=== PATIENT | male | born 1990 | race Caucasian/White ===

== ENCOUNTER 2024-08-20 10:47 | Emergency (ER) | payer OTHER, SELFPAY ==
[2024-08-20 10:49] VITALS: BP 130/80; PULSE 69; O2SAT 96; BMI 23.1
[2024-08-20 10:54] VITALS: TEMP 36.8
--- NOTE | 2024-08-20 10:57 | ED_ITS ---
HPI - Eye Problem General Chief complaint: Eye Problems Stated complaint: FOREIGN BODY - EYE Time Seen by Provider: 08/20/24 10:52 Source: patient Mode of arrival: walk-in History of Present Illness HPI Narrative: This patient is here complaining of possible foreign body in his right eye. He was wearing protective eyewear at home while doing so ending on a chunk of metal but felt a piece of material again in his eye yesterday. That was about 12 hours ago. He has no other complaints. The eye started to get erythematous and tearing and light sensitive. He has no allergies to medication. He has no symptoms in his left eye. Related Data Allergies Allergy/AdvReac Type Severity Reaction Status Date / Time No Known Drug Allergies Allergy Verified 08/20/24 10:53 PFSH PFSH Social History Little interest or pleasure in doing things: not at all Feeling down, depressed, or hopeless: not at all Exam Narrative Exam Narrative: Physical examination shows this to be a well-hydrated well-nourished very pleasant young man here with a female snout puller. His vital signs are noted. Examining his left eye appears completely normal with no abnormal findings noted. His right eye does have some mild injection of his conjunctiva. The lids and lashes are normal. Extraocular muscles are normal the anterior chamber is deep. There is no hyphema or hypopyon. With slit-lamp examination we can identify the what appears to be metallic foreign body at the limbus at approximately the 3 o'clock position nasally. No other abnormalities were noted. Constitutional Vital Signs, click to edit/add: Last Vital Signs Temp 98.3 F 08/20/24 10:54 Pulse 69 08/20/24 10:49 Resp 16 08/20/24 10:49 BP 130/80 08/20/24 10:49 Pulse Ox 96 08/20/24 10:49 O2 Del Method Room Air 08/20/24 10:49 Course Vital Signs Vital signs: Vital Signs Pulse Rate 69 08/20/24 10:49 Respiratory Rate 16 08/20/24 10:49 Blood Pressure 130/80 08/20/24 10:49 Pulse Oximetry 96 08/20/24 10:49 Oxygen Delivery Method Room Air 08/20/24 10:49 Temperature 98.3 F 08/20/24 10:54 Pulse Rate 69 12/29/24 10:49 Respiratory Rate 16 08/20/24 10:49 Blood Pressure 130/80 08/20/24 10:49 Pulse Oximetry 96 08/20/24 10:49 Oxygen Delivery Method Room Air 08/20/24 10:49 MDM - Eye Problem MDM Narrative Medical decision making narrative: After instillation of tetracaine drops and good local anesthesia under slit-lamp guidance, I was able to remove the foreign body with a moistened Q-tip. There is a very tiny residual what appears to be rust ring. We will recommend follow- up with waste reclaimer tomorrow. He is avoid sunlight. He is apply cold compresses to the eye. We will place him mydriatic eyedrops. Discharge Plan Discharge Chief Complaint: Eye Problems Clinical Impression: Foreign body in cornea, right eye, initial encounter Patient Disposition: Home, Self-Care Time of Disposition Decision: 11:37 Print Language: [place] Citizen Additional Instructions: Cold compresses to the eye. Follow-up with your eye doctor tomorrow to further evaluate the residual rust ring. Referrals: Physician,Non-Staff, MD [Primary Care Provider] - 1 week
[2024-08-20] MEDS: TETRACAINE HCL 0.5% OP SOL 80 DROP/4 ML BOTTLE OP (11:05)
[2024-08-20] MEDS: TROPICAMIDE 1% OP SOL 300 DROP/15 ML BOTTLE OP (11:56)
== END 2024-08-20 11:58 | disposition home or self-care (01) ==
PROVIDERS: Emergency Provider Emergency Medicine Emergency Medical Services
DX: T15.01XA Foreign body in cornea, right eye, initial encounter (principal); X58.XXXA Exposure to other specified factors, initial encounter
CPT/HCPCS: 65220; 99284

== ENCOUNTER 2024-11-12 21:06 | Emergency (ER) | payer OTHER, SELFPAY ==
[2024-11-12 21:10] VITALS: BP 122/71; PULSE 70; TEMP 36.9; O2SAT 98; BMI 21.7
--- OUTSIDE RECORDS SUMMARY | 2024-11-12 21:11 | XMS_ITS | CCD ---
Author Organization [facility] Care Team Providers Care Lightning Protection Installer Name Role Phone DR RAY KC Consulting Unavailable REQUEST, DR CALERO LISTED Primary Care Unavailalexandria CASTRO, DR JACQUELIN Barriga Admitting Unavailarleth CASTRO, DR JACQUELIN Barriga Attending Unavailarleth CASTRO, DR JACQUELIN Barriga Consulting UnavailANA CRISTINA Moncada Consulting Unavailable Alfonso Gutierrez Consulting Unavailable DO Ivan Gamlbe Primary Care Provider [phone] MD Tammy Walker Attending Provider Arcadio Augustine Unavailable Ivan Gamble Unavailable Filipe Ríos Unavailable DO Quintin Redd Attending Provider MD Alhaji Velasquez Other Provider DO Cira Concepcion Primary Care Provider DO Cira Concepcion Attending Provider [phone] Cira Concepcion Unavailable MD Cosme Alan Attending Provider [phone] Cosme Alan Unavailable JOSE JHA Attending Unavailable JOSE JHA Attending Unavailable Cosme Alan Admitting Unavailable Cosme Alan Attending Unavailable Cira Concepcion Primary Care Unavailable Jose Jha Attending Unavailable NO FAMILY, PHYSICIAN Primary Care Unavailable Jose Jha Admitting Unavailable Medications Current Medications Medication Drug Class(es) Dates Sig (Normalized) Sig (Original) ibuprofen 800 mg oral tablet (15 sources) Nonsteroidal Anti-inflammatory Drug Start: 07-11-2021 take 800 mg by mouth three times daily Ibuprofen Active 800 MG PO Three times daily July 11, 2021 1:00am Start: 04-06-2020 End: 05-08-2020 take 800 mg by mouth three times daily Ibuprofen Discontinued 800 MG PO Three times daily April 06, 2020 12:00am May 08, 2020 2:53pm Start: 06-14-2018 End: 06-30-2018 take 800 mg by mouth three times daily Ibuprofen Discontinued 800 MG PO Three times daily June 14, 2018 12:00am June 30, 2018 11:35pm lidocaine 0.05 mg/mg medicated patch (12 sources) Antiarrhythmic, Amide Local Anesthetic Start: 08-05-2021 apply 1 dose topically once daily Lidocaine (Lidoderm) 5 % adhesive patch,medicated Active 1 PATCH TOPICAL Daily August 05, 2021 1:00am leave on most painful area for up to 12 hrs Start: 06-24-2021 End: 08-05-2021 apply 1 dose topically every twenty-four hours Lidocaine Discontinued 1 PATCH TOPICAL Q24H June 24, 2021 12:00am August 05, 2021 9:15am leave on most painful area for up to 12 hrs Lidocaine 4 % as directed Externally given at ER Active Methadone (5 sources) Opioid Agonist Methadone HCl 14 5 mg daily Active Methadone HCl 14 0 mg daily Active methylPREDNISolone 4 mg oral tablet (7 sources) Corticosteroid Start: 08-05-2021 take 1 tablet by mouth once Methylprednisolone (Medrol (Abhinav)) 4 mg tablets,dose pack Active 4 MG PO Once August 05, 2021 1:00am methylPREDNISolo ne 4 MG use as directed FOLLOW DIRECTIONS ON BACK OF FOIL PACK Oral for 6 Active triamcinolone acetonide 1 mg/ml topical cream (11 sources) Corticosteroid Start: 04-30-2023 Triamcinolone Acetonide 0.1 % 1 application Externally Twice a day for 7 days Apr, Active Start: 04-30-2023 Triamcinolone Acetonide 0.1 % 1 application Externally Twice a day for 7 days Apr, Active Start: 02-18-2016 DREA barriga Jan, 40 mg Completed/Discontinued Medications Medication Drug Class(es) Dates Sig (Normalized) Sig (Original) acetaminophen 500 mg oral tablet (3 sources) Start: 07-08-2021 End: 08-05-2021 take 2 tablets by mouth four times daily Acetaminophen (Tylenol Extra Strength) 500 mg tablet Discontinued 1000 MG PO Four times daily 60 July 08, 2021 1:00am August 05, 2021 9:15am acetaminophen 325 mg / oxyCODONE hydrochloride 5 mg oral tablet (3 sources) Opioid Agonist Start: 07-24-2021 End: 08-05-2021 take 1 tablet by mouth every six hours Oxycodone-Acetaminop hen (Percocet) 5-325 mg tablet Discontinued 1 TAB PO Q6H 8 2 July 24, 2021 August 05, 2021 9:15am [id number] actuat albuterol 0.09 mg/actuat metered dose inhaler (3 sources) beta2-Adrenergic Agonist Start: 07-11-2017 End: 06-14-2018 take 1 puff(s) by inhalation every four to six hours Albuterol Sulfate (Proventil Hfa) 90 mcg/actuation Hfa Aerosol Inhaler Discontinued 2 PUFF INHALATION EVERY 4-6 HOURS July 11, 2017 1:00am June 14, 2018 2:49am with spacer amoxicillin 875 mg / clavulanate 125 mg oral tablet (3 sources) Penicillin-class Antibacterial Start: 10-06-2020 End: 12-23-2020 take 1 tablet by mouth twice daily Amoxicillin-Pot Clavulanate (Augmentin) 875-125 mg tablet Discontinued 1 TAB PO Twice daily 14 October 06, 2020 1:00am December 23, 2020 7:53am brexpiprazole 0.5 mg oral tablet (3 sources) Atypical Antipsychotic Start: 05-08-2020 End: 10-06-2020 Brexpiprazole (Rexulti) 0.5 mg tablet Discontinued MG TABLET May 08, 2020 12:00am October 06, 2020 4:01am cyclobenzaprine hydrochloride 10 mg oral tablet (12 sources) Muscle Relaxant Start: 07-08-2021 End: 08-05-2021 take 10 mg by mouth three times daily Cyclobenzaprine Discontinued 10 MG PO Three times daily July 11, 2021 1:00am August 05, 2021 9:15am Cyclobenzaprine HCl given at ER Active fluticasone propionate 0.05 mg/actuat metered dose nasal spray (3 sources) Corticosteroid Start: 10-06-2020 End: 12-23-2020 take 1 spray(s) nasal route every twelve hours Fluticasone Propionate Discontinued 1 SPRAY INTRANASAL Q12H October 06, 2020 1:00am December 23, 2020 7:53am administer into each nostril methocarbamol 750 mg oral tablet (3 sources) Muscle Relaxant Start: 06-24-2021 End: 07-08-2021 take 750 mg by mouth three times daily Methocarbamol Discontinued 750 MG PO Three times daily June 24, 2021 12:00am July 08, 2021 2:44pm naproxen 500 mg oral tablet (3 sources) Nonsteroidal Anti-inflammatory Drug Start: 06-24-2021 End: 08-05-2021 take 1 tablet by mouth twice daily Naproxen (Naprosyn) 500 mg tablet Discontinued 500 MG PO Twice daily June 24, 2021 12:00am August 05, 2021 9:15am 24 hr nicotine 0.875 mg/hr transdermal system (3 sources) Cholinergic Nicotinic Agonist Start: 07-08-2021 End: 08-05-2021 Nicotine Discontinued 1 EACH TRANSDERML Daily 0 July 08, 2021 1:00am August 05, 2021 9:15am penicillin v potassium 500 mg oral tablet (3 sources) Start: 06-14-2018 End: 09-01-2018 take 500 mg by mouth four times daily Penicillin V Potassium Discontinued 500 MG PO Four times daily 40 June 14, 2018 12:00am September 01, 2018 10:20pm predniSONE 10 mg oral tablet (3 sources) Start: 07-24-2021 End: 08-05-2021 take 60 mg by mouth once daily, then take 40 mg by mouth once daily, then take 20 mg by mouth once daily, then take 10 mg by mouth once daily Prednisone Discontinued 10 MG PO Daily 39 July 24, 2021 1:00am August 05, 2021 9:15am 60mg daily for three days, 40mg daily for three days, 20mg daily for three days, 10mg daily for three days. 24 hr venlafaxine 75 mg extended release oral capsule (3 sources) Serotonin and Norepinephrine Reuptake Inhibitor Start: 05-08-2020 End: 10-06-2020 Venlafaxine Discontinued MG PO May 08, 2020 12:00am October 06, 2020 4:01am Problems Active Problems Problem Classification Problem Date Documented Date Episodic/Chronic Administrative/social admission (3 sources) Patient encounter status; Translations: [Persons encountering health services in other specified circumstances] 05-08-2020 Episodic Anxiety disorders (12 sources) Mixed anxiety and depressive disorder; Translations: [Anxiety disorder, unspecified] Chronic Chronic obstructive pulmonary disease and bronchiectasis (3 sources) Bronchitis; Translations: [Bronchitis, not specified as acute or chronic] 07-11-2017 Episodic Essential hypertension (3 sources) Hypertensive disorder; Translations: [Essential (primary) hypertension] 09-03-2017 Chronic Inflammatory conditions of male genital organs (1 source) Orchitis; Translations: [ORCHITIS] Onset: 1 Episodic Mood disorders (20 sources) Depressive disorder; Translations: [Depression] 05-09-2020 Chronic Open wounds of extremities (1 source) Complete traumatic metacarpophalangeal amputation of unspecified finger, initial encounter Chronic Open wounds of head; neck; and trunk (3 sources) Facial laceration ; Translations: [Laceration without foreign body of other part of head, initial encounter] 04-06-2020 Episodic Other congenital anomalies (1 source) Preauricular cyst; 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 Other congenital anomalies (2 sources) Preauricular sinus and cyst; 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] Onset: 4 Chronic Other gastrointestinal disorders (12 sources) Constipation; Translations: [Constipation, unspecified] Episodic Other hematologic conditions (3 sources) ESR raised; Translations: [Elevated erythrocyte sedimentation rate] 07-02-2021 Episodic Other injuries and conditions due to external causes (3 sources) Minor head injury; Translations: [Unspecified injury of head, initial encounter] 04-06-2020 Episodic Other nervous system disorders (6 sources) Chronic pain; Translations: [Other chronic pain] Chronic Other nutritional; endocrine; and metabolic disorders (12 sources) Body mass index 25-29 - overweight; Translations: [Body mass index (BMI) 25.0-25.9, adult] Episodic Other screening for suspected conditions (not mental disorders or infectious disease) (3 sources) MRI scan abnormal; Translations: [Abnormal findings on diagnostic imaging of other specified body structures] 07-05-2021 Chronic Other upper respiratory infections (3 sources) Sinusitis; Translations: [Chronic sinusitis, unspecified] 10-06-2020 Chronic Poisoning by other medications and drugs (3 sources) Poisoning by unspecified drugs, medicaments and biological substances, accidental (unintentional), initial encounter; Translations: [Drug overdose] 06-12-2020 Episodic Spondylosis; intervertebral disc disorders; other back problems (20 sources) Sciatica; Translations: [Sciatica, unspecified side] Onset: 2 Resolved: 2 07-11-2021 Episodic Sprains and strains (3 sources) Low back strain; Translations: [Strain of muscle, fascia and tendon of lower back, initial encounter] 06-24-2021 Episodic Substance-related disorders (20 sources) Nicotine dependence, cigarettes, uncomplicated; Translations: [Opioid withdrawal] Onset: 1 Resolved: 2 12-23-2020 Chronic Substance-related disorders (11 sources) Opioid abuse; Translations: [Opioid use, unspecified, uncomplicated] 06-12-2020 Episodic Superficial injury; contusion (3 sources) Contusion of face; Translations: [Contusion of other part of head, initial encounter] 04-06-2020 Episodic Unclassified (2 sources) LOW BACK PAIN, UNSPECIFIED; Translations: [LOW BACK PAIN, UNSPECIFIED] Onset: 1 Viral infection (12 sources) Verruca plantaris; Translations: [Plantar wart] Episodic Past or Other Problems Problem Classification Problem Date Documented Da te Episodic/Chronic Hepatitis (17 sources) Viral hepatitis C; Translations: [Unspecified viral hepatitis C without hepatic coma] Onset: 05-27-2023 07-05-2021 Episodic Unclassified (1 source) LOW BACK PAIN, UNSPECIFIED; Translations: [LOW BACK PAIN, UNSPECIFIED] Onset: 06-30-2021 Unclassified (2 sources) Acute bilateral low back pain without sciatica M54.50 Onset: 07-28-2021 Resolved: 08-07-2021 Results Test Name Value Interpretation Reference Range Facility [facility] 02-15-2024 L Specimen: [id number] Received: 02/16/24 Status: RAKAN Montes Num: [id number] Spec Type: Surgical Subm Dr: Jose Jha,DO Tissues: A Soft Tissue/Surgical Margin-Other than Tumor,Mass,Lip or Yuni (LT PREAURICULA Procedures: HE, Gross/Micro L3 Age/ Patient Sex Location Account Attending Physician LeloSoila spencer 33/M ANDREINA [id number] Jose Jha DO SPEC NUM: [id number] RECD: 02/16/24 STATUS: RAKAN MONTES NUM: [id number] ROMINA: 02/15/24- SUBM DR: Jose Jha DO ENTERED: 02/16/[address] [facility] [address]: [facility] SPEC TYPE: Surgical DEPT: S ORDERED: HE, Gross/Micro L3 ORDERED: HE, Gross/Micro L3 Pathological Diagnosis Cyst, left preauricular, excision: Epidermal inclusion cyst. Clinical Information Preauricular cyst, left ear Gross Description Received in formalin labeled with the patient's name, date of and left preauricular cyst is an unoriented del angel elliptical excision of skin with underlying lobulated subcutaneous tissue altogether measuring 1.7 x 0.8 x 0.6 cm. The skin surface is unremarkable and contains no visible lesions. The specimen is inked green along its resection margin and serially sectioned to reveal a 0.3 x 0.1 cm intact cystic structure with a 0.1 cm in maximum thickness wall. Loan Operations Manager sections are submitted in A1. CPT Codes 49821 -------- -------- Specimen: [id number] Received: 02/16/24 Status: RAKAN Montes Num: [id number] Spec Type: Surgical Subm Dr: Jose Jha,DO Tissues: A Soft Tissue/Surgical Margin-Other than Tumor,Mass,Lip or Yuni (LT PREAURICULA Procedures: HE, Gross/Micro L3 -------- Patient: Soila Potts [id number] (Continued) -------- Signed (signature on file) Maribel Franco MD 02/17/24 1517 Normal [facility] Hep C RT-PCR, Qnt (Non-Graph )on 05-27-2023 Hepatitis C Quantitation Not detected Normal . [facility] Comment on above: Order Comment: Reaso n for Exam Hepatitis C Performed By: #### H CV RNAQNT #### [facility] , Test Information: Normal . [facility] Comment on above: Order Comment: Reaso n for Exam Hepatitis C Result Comment: The quantitative range of this assay is 15 IU/mL to 100 million IU/mL. Performed at: [facility] [address] [id number] Physiology Teacher: Leonor Chris MD, Phone: [phone] PERFORMED BY: [address] [place] [address] PATHOLOGIST OLIVE PACKER DERIAN SANCHEZ M.D. Performed By: #### H CV RNAQNT #### [facility] , Alanine aminotransferase [En zymatic activity/volume] in Serum or PlasmaOrdered By: Cira Concepcion on 04-30-2023 ALT [Catalytic activity/Vol] 15 U/L 7-52 [facility] Albumin [Mass/volume] in Ser um or Plasma by Bromocresol green (BCG) dye binding methoOrdered By: Cira Concepcion on 04-30-2023 Albumin BCG dye [Mass/Vol] 4.4 g/dL 3.5-5.7 [facility] Alkaline phosphatase [Enzyma tic activity/volume] in Serum or PlasmaOrdered By: Cira Concepcion on 04-30-2023 ALP [Catalytic activity/Vol] 62 U/L 34-104 [facility] Aspartate aminotransferase [ Enzymatic activity/volume] in Serum or PlasmaOrdered By: Cira Concepcion on 04-30-2023 AST [Catalytic activity/Vol] 15 U/L 13-39 [facility] Basophils Auto (Bld) [#/Vol] Ordered By: Cira Concepcion on 04-30-2023 Basophils (Bld) [#/Vol] 0.0 10*3/uL 0.0-0.2 [facility] Basophils/100 WBC Auto (Bld) Ordered By: Cira Concepcion on 04-30-2023 Basophils/100 WBC (Bld) 0.5 % . [facility] Bilirubin.total [Mass/volume ] in Serum or PlasmaOrdered By: Cira Concepcion on 04-30-2023 Bilirubin [Mass/Vol] 0.4 mg/dL 0.3-1.0 [facility] Calcium [Mass/volume] in Ser um or PlasmaOrdered By: Cira Concepcion on 04-30-2023 Calcium [Mass/Vol] 9.2 mg/dL 8.6-10.3 [facility] Carbon dioxide, total [Moles /volume] in Serum or PlasmaOrdered By: Cira Concepcion on 04-30-2023 CO2 [Moles/Vol] 29.0 mmol/L 21.0-31.0 [facility] Chloride [Moles/volume] in S olive or PlasmaOrdered By: Cira Concepcion on 04-30-2023 Chloride [Moles/Vol] 105 mmol/L 98-107 [facility] Creatinine [Mass/volume] in Serum or PlasmaOrdered By: Cira Concepcion on 04-30-2023 Creatinine [Mass/Vol] 0.84 mg/dL 0.70-1.30 [facility] Diagnostic impression [Inter pretation] in Specimen NarrativeOrdered By: Cira Concepcion on 04-30-2023 Diagnostic impression Molgen Ollie (Unsp spec) [Interp] See comment . [facility] Comment on above: Positive HCV antibod y screen without the presence of HCVRNA is consistent with a resolved past infection or a falsepositive HCV antibody. Consider repeat testing after onemonth.Performed at: [facility] [id number] Director: Zane Raines PhD, Phone: [phone] at: - [facility] [address] [id number] Director: Leonor Chris MD, Phone: [phone] Eosinophils Auto (Bld) [#/Vo l]Ordered By: Cira Concepcion on 04-30-2023 Eosinophils (Bld) [#/Vol] 0.2 10*3/uL 0.0-0.45 [facility] Eosinophils/100 WBC Auto (Bl d)Ordered By: Cira Concepcion on 04-30-2023 Eosinophils/100 WBC (Bld) 2.7 % . [facility] Erythrocyte distribution wid th Auto (RBC) [Ratio]Ordered By: Cira Concepcion on 04-30-2023 Erythrocyte distribution width (RBC) [Ratio] 13.8 % 12.0-14.8 [facility] Globulin Calc (S) [Mass/Vol] Ordered By: Cira Concepcion on 04-30-2023 Globulin (S) [Mass/Vol] 2.3 g/dL [facility] Glucose [Mass/volume] in Ser um or PlasmaOrdered By: Cira Concepcion on 04-30-2023 Glucose [Mass/Vol] 85 mg/dL 70-100 [facility] Comment on above: ADA recommended refe rence rangeRandom Glucose Reference Range is dependent on time and content of last meal. Glucose of more than 200 mg/dL in a nonstressed, ambulatory subject supports the diagnosis of Diabetes Mellitus. Hematocrit Auto (Bld) [Volum e fraction]Ordered By: Cira Concepcion on 04-30-2023 Hematocrit (Bld) [Volume fraction] 36.9 % 38.8-50.0 [facility] Hemoglobin [Mass/volume] in BloodOrdered By: Cira Concepcion on 04-30-2023 Hemoglobin (Bld) [Mass/Vol] 12.5 g/dL 13.0-17.0 [facility] Hepatitis C virus IgG Ab [Pr esence] in Serum or Plasma by ImmunoassayOrdered By: Cira Concepcion on 04-30-2023 HCV IgG IA Ql Reactive Non Reactive [facility] Leukocytes [#/volume] correc ivelisse for nucleated erythrocytes in Blood by Automated counOrdered By: Cira Concepcion on 04-30-2023 WBC corrected for nucl RBC Auto (Bld) [#/Vol] 5.9 10*3/uL 4.1-10.5 [facility] Lymphocytes Auto (Bld) [#/Vo l]Ordered By: Cira Concepcion on 04-30-2023 Lymphocytes (Bld) [#/Vol] 2.7 10*3/uL 1.00-4.8 [facility] Lymphocytes/100 WBC Auto (Bl d)Ordered By: Cira Concepcion on 04-30-2023 Lymphocytes/100 WBC (Bld) 45.3 % . [facility] MCH Auto (RBC) [Entitic mass ]Ordered By: Cira Concepcion on 04-30-2023 MCH (RBC) [Entitic mass] 28.0 pg 27.5-35.2 [facility] MCHC Auto (RBC) [Mass/Vol]Or dered By: Cira Concepcion on 04-30-2023 MCHC (RBC) [Mass/Vol] 33.8 g/dL 32.5-35.6 [facility] MCV Auto (RBC) [Entitic vol] Ordered By: Cira Concepcion on 04-30-2023 MCV (RBC) [Entitic vol] 82.8 fL 83.5-101 [facility] Monocytes Auto (Bld) [#/Vol] Ordered By: Cira Concepcion on 04-30-2023 Monocytes (Bld) [#/Vol] 0.4 10*3/uL 0.0-0.8 [facility] Monocytes/100 WBC Auto (Bld) Ordered By: Cira Concepcion on 04-30-2023 Monocytes/100 WBC (Bld) 7.6 % . [facility] Neutrophils Auto (Bld) [#/Vo l]Ordered By: Cira Concepcion on 04-30-2023 Neutrophils (Bld) [#/Vol] 2.6 10*3/uL 1.8-7.7 [facility] Neutrophils/100 WBC Auto (Bl d)Ordered By: Cira Concepcion on 04-30-2023 Neutrophils/100 WBC (Bld) 43.9 % . [facility] No Panel InformationOrdered By: Cira Concepcion on 04-30-2023 Estimated GFR (CKD-EPI) > 60.0 mL/Min [facility] Hepatitis C RNA Qnt (PCR) Test Info See comment . [facility] Comment on above: The quantitative ran ge of this assay is 15 IU/mL to 100million IU/mL. Hepatitis C RNA Quantitative See comment [facility] Comment on above: HCV Not Detected Pharmacy Creatinine Clearance (Chem N/A [facility] TB Test (T-Spot) See comment [facility] Comment on above: See report. Scanned copy available in EMR. Nucleated erythrocytes [Pres ence] in Blood by Automated countOrdered By: Cira Concepcion on 04-30-2023 Nucleated RBC Auto Ql (Bld) 0.1 /100{WBC} 0-0.5 [facility] Platelet mean volume Auto (B ld) [Entitic vol]Ordered By: Cira Concepcion on 04-30-2023 Platelet mean volume (Bld) [Entitic vol] 8.1 fL 6.6-10.1 [facility] Platelets Auto (Bld) [#/Vol] Ordered By: Cira Concepcion on 04-30-2023 Platelets (Bld) [#/Vol] 220 10*3/uL 150-450 [facility] Potassium [Moles/volume] in Serum or PlasmaOrdered By: Cira Concepcion on 04-30-2023 Potassium [Moles/Vol] 4.2 mmol/L 3.5-5.1 [facility] Protein [Mass/volume] in Ser um or PlasmaOrdered By: Cira Concepcion on 04-30-2023 Protein [Mass/Vol] 6.7 g/dL 6.4-8.9 [facility] RBC Auto (Bld) [#/Vol]Ordere d By: Cira Concepcion on 04-30-2023 RBC (Bld) [#/Vol] 4.45 10*6/uL 3.90-5.60 [facility] Serum or plasma albumin/glob ulin mass ratioOrdered By: Cira Concepcion on 04-30-2023 Albumin/Globulin [Mass ratio] 1.9 {ratio} [facility] Serum or plasma anion gap de terminationOrdered By: Cira Concepcion on 04-30-2023 Anion gap [Moles/Vol] 9.2 mmol/L 6.0-15.0 [facility] Sodium [Moles/volume] in Ser um or PlasmaOrdered By: Cira Concepcion on 04-30-2023 Sodium [Moles/Vol] 139 mmol/L 136-145 [facility] Urea nitrogen [Mass/volume] in Serum or PlasmaOrdered By: Cira Concepcion on 04-30-2023 Urea nitrogen [Mass/Vol] 15 mg/dL 7-25 [facility] WBC Auto (Bld) [#/Vol]Ordere d By: Cira Concepcion on 04-30-2023 WBC (Bld) [#/Vol] 5.9 10*3/uL 4.1-10.5 [facility] Outside Records Officeon Outside Records Office [id number]# 2.00CD:127 Normal [facility] Outside Records Office [id number]# 1.00CD:127 Normal [facility] Radiology Outside Office Electrical Continuity Inspector yon 08-13-2021 Radiology Outside Office Copy [id number]# 1.00CD:127 Normal [facility] Radiology Outside Office Copy [id number]# 1.00CD:127 Normal [facility] Radiology Outside Office Copy [id number]# 1.00CD:127 Normal [facility] Radiology Outside Office Copy [id number]# 1.00CD:127 Normal [facility] Radiology Outside Office Copy [id number]# 1.00CD:127 Normal [facility] Referrals Officeon Referrals Office [id number]# 1.00CD:127 Normal [facility] CBC AUTO DIFFon 06-30-2021 BASO # 0.0 103/ul Normal 0.0-0.1 [facility] Comment on above: Performed By: #### C BC #### [facility] [address] [place] [address] Dr. Lyn Delgado Basophils/100 WBC (Bld) 0.2 % Normal 0.2-2.0 [facility] Comment on above: Performed By: #### C BC #### [facility] [address] [place] [address] Dr. Lyn Delgado EO # 0.0 103/ul Normal 0.0-0.7 [facility] Comment on above: Performed By: #### C BC #### [facility] [address] [place] [address] Dr. Lyn Delgado Eosinophils/100 WBC (Bld) 0.3 % Critically low 0.9-7.0 [facility] Comment on above: Performed By: #### C BC #### [facility] [address] [place] [address] Dr. Lyn Delgaod Erythrocyte distribution width (RBC) [Ratio] 15.4 % Critically high 11.0-15.0 [facility] Comment on above: Performed By: #### C BC #### [facility] [address] [place] [address] Dr. Lyn Delgado Hematocrit (Bld) [Volume fraction] 35.2 % Critically low 42.0-54.0 [facility] Comment on above: Performed By: #### C BC #### [facility] [address] [place] [address] Dr. Lyn Delgado Hemoglobin (Bld) [Mass/Vol] 11.3 g/dL Critically low 14.0-18.0 [facility] Comment on above: Performed By: #### C BC #### [facility] [address] [place] [address] Dr. Lyn Delgado IG # 0.06 10e3/ul Critically high 0.00-0.03 [facility] Comment on above: Performed By: #### C BC #### [facility] [address] [place] [address] Dr. Lyn Delgado IG % 0.4 % Normal 0.0-0.5 [facility] Comment on above: Performed By: #### C BC #### [facility] [address] [place] [address] Dr. Lyn Delgado LYMPH # 2.9 103/ul Normal 1.2-3.8 [facility] Comment on above: Performed By: #### C BC #### [facility] [address] [place] [address] Dr. Lyn Delgado Lymphocytes/100 WBC (Bld) 20.5 % Normal 20.5-60.0 [facility] Comment on above: Performed By: #### C BC #### [facility] [address] [place] [address] Dr. Lyn Delgado MANUAL DIFF REQ NO Normal [facility] Comment on above: Performed By: #### C BC #### [facility] [address] [place] [address] Dr. Lyn Delgado MCH (RBC) [Entitic mass] 25.3 pg Critically low 25.9-34 .0 [facility] Comment on above: Performed By: #### C BC #### [facility] [address] [address] [address] Lyn Delgado MCHC (RBC) [Mass/Vol] 32.1 g/dL Normal 29.9-35.2 [facility] Comment on above: Performed By: #### C BC #### [facility] [address] [place] [address] Dr. Lyn Delgado MCV (RBC) [Entitic vol] 78.7 fL Critically low 80.0-94. 0 [facility] Comment on above: Performed By: #### C BC #### [facility] [address] [place] [address] Dr. Lyn Delgado MONO # 1.1 103/ul Critically high 0.3-0.8 [facility] Comment on above: Performed By: #### C BC #### [facility] [address] [place] [address] Dr. Lyn Delgado Monocytes/100 WBC (Bld) 8.0 % Normal 1.7-12.0 [facility] Comment on above: Performed By: #### C BC #### [facility] [address] [place] [address] Dr. Lyn Delgado NEUT # 10.0 103/ul Critically high 1.4-6.5 [facility] Comment on above: Performed By: #### C BC #### [facility] [address] [place] [address] Dr. Lyn Delgado Neutrophils/100 WBC (Bld) 70.6 % Normal 43.0-75.0 [facility] Comment on above: Performed By: #### C BC #### [facility] [address] [place] [address] Dr. Lyn Delgado Platelet mean volume (Bld) [Entitic vol] 9.6 fL Normal 9.5-13.5 [facility] Comment on above: Performed By: #### C BC #### [facility] [address] [place] [address] Dr. Lyn Delgado PLT 404 103/ul Normal 150-450 [facility] Comment on above: Performed By: #### C BC #### [facility] [address] [address] [address] Lyn Delgado RBC 4.47 106/ul Critically low 4.70-6.10 [facility] Comment on above: Performed By: #### C BC #### [facility] [id number] Lyn Delgado WBC 14.2 103/ul Critically high 4.0-11.0 [facility] Comment on above: Performed By: #### C BC #### [facility] [id number] Lyn Delgado CRPon 06-30-2021 CRP [Mass/Vol] mg/L Critically high <=1.0 [facility] Comment on above: Performed By: #### C RP #### [facility] [address] [address] [address] ABD/PELV W CONon 06-30-20 CT ABD/PELV W CON EXAM: CT ABD/PELV W CON REASON FOR EXAM: Male, 31 years, GENERALIZED ABDOMINAL PAIN. TECHNIQUE: Computed tomography of the abdomen and pelvis is performed in the axial projection from the lung bases to the pubic symphysis. Sagittal and coronal reconstructed images are performed. Dose reduction techniques were achieved by using automated exposure control and/or adjustment of mA and/or KVP according to patient size and/or use of iterative reconstruction technique. A total of 100 mL Omnipaque 300 IV contrast was given. Study was performed without oral contrast. Additional axial delayed images are performed as well. COMPARISON: None. FINDINGS: Lung bases: The lung bases are clear. There is no pleural effusion. The visualized portions of the heart are unremarkable. Liver: The liver is normal. Gallbladder: The gallbladder is normal. Spleen: There is mild splenomegaly. Pancreas: The pancreas is normal. Adrenal glands: The adrenal glands are normal bilaterally. Right kidney: The kidney is normal in size. There is no renal calculus or hydronephrosis. Left kidney: The kidney is normal in size. There is no renal calculus or hydronephrosis. Stomach: The stomach is normal. Small bowel: The small bowel is normal. Large bowel: There appears to be some colon wall thickening in the region of the hepatic flexure and proximal transverse colon. The transverse colon appears somewhat redundant. There is a moderate amount of stool in the left colon. Appendix: The appendix is visualized, and is normal. There is some high density material within the appendiceal lumen which could represent inspissated debris or prior contrast. Aorta: The aorta is normal IVC: The IVC is normal. Retroperitoneum: Normal retroperitoneum. Bladder: The bladder is nearly empty at the time of scanning. Pelvic organs: Normal prostate gland. Abdominal wall: Normal abdominal wall. Osseous structures: Degenerative changes are seen in the lower thoracic spine. A limbus vertebral body is noted at L4. IMPRESSION: There appears to be some wall thickening within the colon at the hepatic flexure and proximal transverse colon. This may represent colitis or underdistention. No bowel obstruction or acute renal pathology. Mild splenomegaly. Additional nonacute findings, as detailed above. Electronically authenticated by: ALFONSO GUTIERREZ Date: 2021-06-30 18:44 Normal [facility] ER URINE PROFILEon 1 Bilirubin Ql (U) Negative Normal NEGATIVE [facility] Comment on above: Performed By: #### E RUR #### [facility] [address] [place] [address] Dr. Lyn Delgado Clarity (U) SL CLOUDY Abnormal CLEAR [facility] Comment on above: Performed By: #### E RUR #### [facility] [address] [place] [address] Dr. Lyn Delgado Color (U) YELLOW Normal YELLOW [facility] Comment on above: Performed By: #### E RUR #### [facility] [address] [place] [address] Dr. Lyn Delgado ERUTONE A micrscopic examination will be performed if indicated. Normal [facility] Comment on above: Performed By: #### E RUR #### [facility] [address] [place] [address] Dr. Lyn Delagdo Glucose Ql (U) Negative Normal NEGATIVE [facility] Comment on above: Performed By: #### E RUR #### [facility] [address] [place] [address] Dr. Lyn Delgado Hemoglobin Ql (U) Negative Normal NEGATIVE [facility] Comment on above: Performed By: #### E RUR #### [facility] [address] [place] [address] Dr. Lyn Delgado Ketones Ql (U) Negative Normal NEGATIVE [facility] Comment on above: Performed By: #### E RUR #### [facility] [address] [place] [address] Dr. Lyn Delgado LEUKOCYTES Negative Normal NEGATIVE [facility] Comment on above: Performed By: #### E RUR #### [facility] [address] [place] [address] Dr. Lyn Delgado Nitrite Ql (U) Negative Normal NEGATIVE [facility] Comment on above: Performed By: #### E RUR #### [facility] [address] [place] [address] Dr. Lyn Delgado pH (U) 5.5 [pH] Normal 5-9 [facility] Comment on above: Performed By: #### E RUR #### [facility] [address] [place] [address] Dr. Lyn Delgado SPEC GRAVITY >=1.030 Abnormal 1.005-<=1.02 5 [facility] Comment on above: Performed By: #### E RUR #### [facility] [address] [place] [address] Dr. Lyn Delgado UA PROTEIN Negative Normal NEGATIVE/ TRACE [facility] Comment on above: Performed By: #### E RUR #### [facility] [address] [place] [address] Dr. Lyn Delgado UR MICRO IND NOT INDICATED Normal [facility] Comment on above: Performed By: #### E RUR #### [facility] [address] [place] [address] Dr. Lyn Delgado Urobilinogen Qn (U) 1.0 {Ele'U}/dL Normal 0.2 - 1. 0 [facility] Comment on above: Performed By: #### E RUR #### [facility] [address] [place] [address] Dr. Lyn Delgado PROF CHEM 8 (BAS METB)on Anion gap [Moles/Vol] 16.5 mmol/L Normal [facility] Comment on above: Performed By: #### B MP #### [facility] [address] [address] [address] Lyn Delgado Calcium [Mass/Vol] 9.1 mg/dL Normal 8.4-10.2 [facility] Comment on above: Performed By: #### B MP #### [facility] [address] [address] [address] Lyn Delgado Chloride [Moles/Vol] 99 mmol/L Normal 98-107 [facility] Comment on above: Performed By: #### B MP #### [facility] [address] [place] [address] Dr. Lyn Delgado CO2 [Moles/Vol] 23.6 mmol/L Normal 22.0-30.0 [facility] Comment on above: Performed By: #### B MP #### [facility] [address] [address] [address] Lyn Delgado Creatinine [Mass/Vol] 0.87 mg/dL Normal 0.66-1.25 [facility] Comment on above: Performed By: #### B MP #### [facility] [address] [place] [address] Dr. Lyn Delgado EGFR-AF SWISS >60 Normal >=60 [facility] Comment on above: Performed By: #### B MP #### [facility] [address] [address] [address] Lyn Delgado EGFR-NON AF SWISS >60 Normal >=60 [facility] Comment on above: Performed By: #### B MP #### [facility] [address] [address] [address] Lyn Delgado Glucose [Mass/Vol] 95 mg/dL Normal 74-106 [facility] Comment on above: Performed By: #### B MP #### [facility] [address] [address] [address] Lyn Delgado Potassium [Moles/Vol] 4.1 mmol/L Normal 3.4-5.0 [facility] Comment on above: Performed By: #### B MP #### [facility] [address] [address] [address] Lyn Delgado Sodium [Moles/Vol] 135 mmol/L Critically low 137-145 [facility] Comment on above: Performed By: #### B MP #### [facility] [address] [place] [address] Dr. Lyn Delgado Urea nitrogen [Mass/Vol] 21.0 mg/dL Critically high 9.0-20 .0 [facility] Comment on above: Performed By: #### B MP #### [facility] [address] [place] [address] Dr. Lyn Delgado Urea nitrogen/Creatinine [Mass ratio] 24.1 mg/mg Normal [facility] Comment on above: Performed By: #### B MP #### [facility] [address] [place] [address] Dr. Lyn Delgado [facility] SED [facility] >130 Critically high <=15 [facility] Comment on above: Performed By: #### S EDR #### [facility] [address] [place] [address] Dr. Lyn Delgado US SCROTUM W VASCULAR ORGANo n 06-30-2021 US SCROTUM W VASCULAR ORGAN EXAM: US SCROTUM W VASCULAR ORGAN CLINICAL INDICATION: Right groin/scrotal pain, radiating to lower back. COMPARISON: Same day CT abdomen pelvis. TECHNIQUE: Villatoro-scale and color Doppler images as well as spectral analysis of the bilateral testes were obtained in the axial and longitudinal planes using real time ultrasound. FINDINGS: RIGHT: The testicle is normal in size, shape, and echotexture. The right testicle measures 5.5 x 2.3 x 3.5 cm. Asymmetric increased vascularity of the right testicle compared to the left. No masses are identified. No hydrocele. No varicocele. Right epididymis is unremarkable. Normal Doppler flow of the right epididymis. LEFT: The testicle is normal in size, shape, and echotexture. The left testicle measures 5.2 x 1.9 x 3.2 cm. Normal doppler flow of the left testicle. No masses are identified. No hydrocele. No varicocele. Left epididymis is unremarkable. Normal doppler flow of the left epididymis. IMPRESSION: Asymmetric increased vascularity of the right testicle compared to the left. May represent orchitis. Right epididymis does not appear hypervascular however and isolated orchitis is uncommon. An alternative explanation would be the reperfusion phase of intermittent torsion. No evidence of torsion at this time. Consider urologic evaluation. Electronically authenticated by: ANA CRISTINA VELÁSQUEZ Date: 2021-06-30 20:49 Normal [facility] Provider Note - ED v2on 03-24 Provider Note - ED v2 Provider Note - ED v2: Chart Review: HISTORY OF PRESENTING ILLNESS SOILA is a 29 year old Male and was seen by me at 18-Apr-2019 21:18 for a chief complaint of dental pain/injury . The historian is the patient. Additional Details: Patient complains of pain to the left lower jaw for the past 2 hours after biting into a piece of beef jerky. Pain is sharp and severe and constant. He took Tylenol without relief. He denies fever. It does feel swollen to him. He denies drainage. He says he has had chronic problems with his teeth but hasn't seen a dentist. Triage Information: Most recent Vital Sign Value Date Temp (F): 97.5 04-18-2019 21:05 Temp (C): 36.4 04-18-2019 21:05 Heart Rate (beats/min): 78 04-18-2019 21:05 Respirations (breaths/min): 18 04-18-2019 21:05 SpO2 (%): 99 04-18-2019 21:05 BP Systolic (mm Hg): 155 04-18-2019 21:05 BP Diastolic (mm Hg): 99 04-18-2019 21:05 Associated Symptoms: feels swollen. Significant negatives: denies fever. Location: left lower jaw. Radiation: none. Quality is sharp. Context is (biting into beef jerky). Duration: 2 hour(s). Timing is sudden onset and constant. Modifying factors: Worse with eating. Pertinent history is none related to reason for visit. PAST MEDICAL HISTORY ATTESTATION: I have reviewed and confirmed nurse's/medic's notes for patient's medications, allergies, medical history, and surgical history ALLERGIES/INTOLERANCE S: No Known Allergies HEALTH HISTORY: No documented data. OUTPATIENT MEDICATIONS: Home Medications Review Status for Reconciliation: N/A Med Status: N/A No documented data. SIGNIFICANT EVENTS: Past Medical History Description:HEP C REVIEW OF SYSTEMS All other systems reviewed and are negative PHYSICAL EXAM CONSTITUTIONAL: Well-developed, well-nourished, no acute distress, interactive, well-hydrated, nontoxic HENMT: Normocephalic, atraumatic. Bilateral external ear canals and TMs are normal, nasal mucosa, turbinates, and septum are normal. Mouth, tongue, and pharynx are normal, there is no tonsillar edema or erythema or exudate. Mucous membranes are moist. Multiple dental caries and fractured teeth. No obvious abscess EYES: Pupils are equal round and reactive to light, extraocular movements intact, conjunctivae and lids are normal CARDIOVASCULAR: Regular rate and rhythm, no murmurs rubs or gallops, no peripheral edema, normal capillary refill, symmetric distal pulses RESPIRATORY: Normal respiratory effort, no Rales, rhonchi, or wheezes. Equal bilateral air entry GASTROINTESTINAL: No abdominal tenderness, rebound, or guarding. No masses or organomegaly. Normal bowel sounds. Rectal exam deferred MUSCULOSKELETAL: Normal gait. Normal digits. No gross tendon or ligament injury. Normal strength and tone. No gross deformity. Extremities are nontender to palpation. No limits to range of motion. NEUROLOGICAL: At baseline, normal speech, normal motor and sensory function, no facial droop SKIN: Skin color is normal for race, no rash, no bruising, no laceration PSYCHIATRIC: Normal mood and affect. No apparent risk to self or others. RESULTS/VITAL SIGNS VITAL SIGNS: T PRBP SpO2O2(LPM) %FiO2 Method 18-Apr-2019 21:05:[id number]/ 99 99 room air, no respiratory support MEDICAL DECISION MAKING/ED COURSE MDM/ED COURSE: Patient is overall well-appearing. He will be started on dental pledgets for pain and amoxicillin. He will follow-up with his dentist. I do feel he is safe for discharge at this time. He will return immediately for new or worsening or concerning symptoms. I have answered all of his questions and he has verbally expressed a clear understanding of the instructions and state's that he is comfortable with the plan. Discussed Findings with: patient CLINICAL IMPRESSION Diagnosis/Annotation: ED Dx Name:Pain due to dental caries Code:K02.9 Dispostion: discharged Type: home Condition on Disposition: stable ATTESTATION CRITICAL CARE TIME Is this a critically ill patient: no Electronic Signatures: Latrice Fairbanks) (Signed 18-Apr-2019 21:31) Authored: Provider Note - ED v2 Last Updated: 18-Apr-2019 21:31 by Latrice Fairbanks) References: 1. Data Referenced From Triage - ED 18-Apr-2019 21:05 Normal [facility] Risk Screen - Adult Emergenc yon 04-18-2019 Risk Screen - Adult Emergency Preferred Language: Preferred Language: Preferred Language for Discussing Health Care (patient/designee)Eng gladys Advanced Directives: Advance Directive/DNRno Family Violence Adult: Abuse Screen: Are you or have you been threatened or abused physically, emotionally, or sexually by anyoneno Learning Assessment (Patient): Learning Assessment (Patient): Patient is Able to be Assessed for Learningyes Factors Influencing Readiness to Learninterest in learning Factors that Impact Ability to Learnnone Devices/Methods Used to Communicatenone Learning Preferencesaudio Cultural Considerationsnone Developmental Considerationsnone Voodoo Considerationsnone Learning Assessment (Other Learner): Learning Assessment (Other Learner): Other learner availableyes... Learnerfriend Factors Influencing Readiness to Learninterest in learning Factors that Impact Ability to Learnnone Devices/Methods Used to Communicatenone Learning Preferencesaudio Cultural Considerationsnone Developmental Considerationsnone Voodoo Considerationsnone Pressure Injury/TB/Substance: Pressure Injury: Pressure Injury Present on Admissionno Do you have a coughno Substance Use Current or Former HistoryYES: Cigarette/Tobacco Smoking Statuscurrent every day smoker Admission Risk Screen: Significant IndicatorsComplete CAGE: CAGE: Is this an injured patient [place] a [place] [place] no Electronic Signatures: Germán Gallagher) (Signed 18-Apr-2019 21:09) Authored: Preferred Language, Advanced Directives, Family Violence Adult, Learning Assessment (Patient), Learning Assessment (Other Learner), Pressure Injury/TB/Substance, CAGE Last Updated: 18-Apr-2019 21:09 by Germán Gallagher (NOAH) Normal [facility] Triage - EDon 04-18-2019 Triage - ED Quick Triage: The patient and/or guardian verbally acknowledges placement for services into the following (when Urgent Care Service hours are operating):emergency department Chart Review: CHIEF COMPLAINT SOILA POTTS is a Male patient with a chief complaint of dental pain/injury. Other Complaints: PT C/O DENTAL PAIN (LEFT LOWER TOOTH) X 2 HRS. Triage Date/Time: 18-Apr-2019 21:05 Pain Rating (0-10): 10 = Severe Pain location: [place] Vital Signs: Temperature: 97.5F ( 36.4C) taken temporal Blood Pressure: 155/99 Mean: Heart Rate: 78 Respiratory Rate: 18 Pulse Oximetry: 99% on room air, no respiratory support. Height: 6 feet 0.00 inches. 182.8 CM Weight: 183.0 pounds. Calculated 83.0 kg. (stated) Calculated BMI (kg/m2): 24.838 Calculated BSA (m2) 2.05 [place] Coma Scale: Best Eye Response: (E4) spontaneous Best Motor Response: (M6) obeys commands Best Verbal Response: (V5) oriented Agueda Score: 15 Patient has homicidal thoughts: no FRANCI: 5 Symptoms Are POSITIVE For: facial pain, jaw pain and toothache. Risk Screens Suicide Risk Screen In the Past Month: Have you wished you were or wished you could go to sleep and not wake up no In the Past Month: Have you had any actual thoughts of killing yourself no In Your Lifetime: Have you ever done anything, started to do anything, or prepared to do anything to end your life no [place] Fall Scale Screening Has the patient fallen before (or is the patient in the ED as a result of a fall) has not had a fall Does the patient have an impaired gait does not have impaired gait Is the patient cognitively impaired not cognitively impaired PAIN Pain Scale Used: ALEXA Pain Rating (0-10): 10 = Severe Pain Management Interventions: avoided unnecessary movement Pain Management Plan and Pain Scale Review: patient/family verbalize understanding ARRIVAL INFORMATION Means of Arrival: Ambulatory Mode of Arrival: private vehicle Arrival From: home Accompanied By: self Language: Spoken Language Preferred: Romanian 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 The airway is open and patent. Breathing spontaneous and unlabored with clear breath sounds bilaterally. Circulation is normal with good peripheral pulses. Skin is warm and dry and color is normal for race. PAST MEDICAL HISTORY Immunization History: Last Known Tetanus Immunization: Unknown TRAVEL HISTORY Travel Exposure History: NO travel to International locations in the past 30 days Past Medical History: Past Medical History Reviewedyes HEP C: Past Medical History, Active Electronic Signatures: Germán Gallagher (NOAH) (Signed 18-Apr-2019 21:07) Authored: Triage, Past Medical History Last Updated: 18-Apr-2019 21:07 by Germán Gallagher (NOAH) Normal [facility] Vital Signs Date Time Vital Sign Value Performing Clinician Facility 07-30-2023 08:15-0500 Body height 182.88 cm Cira Concepcion Other [facility] Other 07-30-2023 08:15-0500 Body mass index (BMI) [Ratio] 24.25 kg/m2 Cira Concepcion Other [facility] Other 07-30-2023 08:15-0500 Body weight 81.1 kg Cira Concepcion Other [facility] Other 07-30-2023 08:15-0500 Diastolic blood pressure 78 mm[Hg] Cira Concepcion Other [facility] Other 07-30-2023 08:15-0500 Respiratory rate 18 /min Cira Concepcion Other [facility] Other 07-30-2023 08:15-0500 SaO2% (BldA) [Mass fraction] 98 % Cira Concepcion Other [facility] Other 07-30-2023 08:15-0500 Systolic blood pressure 126 mm[Hg] Cira Concepcion Other [facility] Other 05-27-2023 14:00-0400 Body height 182.88 cm Cosme Alan Other [facility] Other 05-27-2023 14:00-0400 Body mass index (BMI) [Ratio] 23.46 kg/m2 Cosme Alan Other [facility] Other 05-27-2023 14:00-0400 Body weight 78.47 kg Cosme Alan Other [facility] Other 05-27-2023 14:00-0400 Diastolic blood pressure 77 mm[Hg] Cosme Dayanna Other [facility] Other 05-27-2023 14:00-0400 Systolic blood pressure 126 mm[Hg] Cosme Dayanna Other [facility] Other 10-27-2021 10:00-0500 Body height 182.88 cm Ivandexter JaramilloTye Other [facility] Other 10-27-2021 10:00-0500 Body mass index (BMI) [Ratio] 22.96 kg/m2 Ivan Gamble Other [facility] Other 10-27-2021 10:00-0500 Body weight 76.79 kg Ivan Gamble Other [facility] Other 10-27-2021 10:00-0500 Diastolic blood pressure 81 mm[Hg] Ivan Gamble Other [facility] Other 10-27-2021 10:00-0500 Respiratory rate 18 /min Ivan Gamble Other [facility] Other 10-27-2021 10:00-0500 SaO2% (BldA) [Mass fraction] 99 % Ivan Gamble Other [facility] Other 10-27-2021 10:00-0500 Systolic blood pressure 140 mm[Hg] Ivan Gamble Other [facility] Other 08-07-2021 14:00-0500 Body height 182.88 cm Arcadio Augustine Other [facility] Other 08-07-2021 14:00-0500 Body mass index (BMI) [Ratio] 23.6 kg/m2 Arcadio Augustine Other [facility] Other 08-07-2021 14:00-0500 Body weight 78.93 kg Arcadio Augustine Other [facility] Other 08-07-2021 14:00-0500 Diastolic blood pressure 76 mm[Hg] Arcadio Augustine Other [facility] Other 08-07-2021 14:00-0500 Systolic blood pressure 139 mm[Hg] Arcadio Augustine Other [facility] Other 07-28-2021 09:15-0500 Body height 182.88 cm Ivan Jaramilloahan Other [facility] Other 07-28-2021 09:15-0500 Body mass index (BMI) [Ratio] 23.62 kg/m2 Ivandexter JaramilloTye Other [employer] Other 07-28-2021 09:15-0500 Body weight 79.02 kg Ivan Gamble Other [employer] Other 07-28-2021 09:15-0500 Diastolic blood pressure 92 mm[Hg] Ivan Gamble Other [employer] Other 07-28-2021 09:15-0500 Respiratory rate 18 /min Ivan Gamble Other [employer] Other 07-28-2021 09:15-0500 SaO2% (BldA) [Mass fraction] 99 % Ivan Gamble Other [employer] Other 07-28-2021 09:15-0500 Systolic blood pressure 160 mm[Hg] Ivan Gamble Other [employer] Other Encounters Encounter Date Encounter Type Care Provider Facility Start: 02-25-2024 End: 02-25-2024 ambulatory JOSE JHA Not Available Start: 02-15-2024 End: 02-15-2024 ambulatory Jose Jha Facility:[facility] Start: 01-28-2024 End: 01-28-2024 ambulatory JOSE JHA Not Available Start: 07-30-2023 End: 07-30-2023 ambulatory Cira Concepcion Other [employer] Other Start: 07-30-2023 Office outpatient visit 15 minutes Cira [facility] Start: 06-21-2023 End: 06-21-2023 ambulatory Cosme Alan Other [employer] Other Start: 06-21-2023 Telephone encounter Cosme Alan [facility] [employer] Start: 05-27-2023 End: 05-27-2023 Patient encounter procedure MD Alhaji Velasquez Work Phone: [facility] [place] Work Phone: Start: 05-27-2023 End: 05-27-2023 ambulatory MD Alhaji Velasquez Work Phone: [facility] Work Phone: Start: 05-27-2023 FQHC visit new patient Cosme Alan [facility] Gastroenterology Start: 05-12-2023 End: 05-12-2023 ambulatory Ciraalexandria Concepcion Other [employer] Other Start: 05-12-2023 Telephone encounter Cira Concepcion [facility] Start: 05-05-2023 End: 05-05-2023 ambulatory Cira Carlene Other [employer] Other Start: 05-05-2023 Telephone encounter Cira Concepcion [facility] Start: 04-30-2023 End: 04-30-2023 ambulatory MD Alhaji Velasquez Work Phone: [facility] Work Phone: Start: 04-30-2023 End: 04-30-2023 Patient encounter procedure MD Alhaji Velasquez Work Phone: [facility] Start: 04-09-2023 End: 04-09-2023 Patient encounter procedure MD Alhaji Velasquez Work Phone: [facility] Work Phone: Start: 01-05-2022 End: 01-05-2022 Patient encounter procedure DO Ivan Gamble Work Phone: [facility] Start: 10-27-2021 End: 10-27-2021 ambulatory Ivan Gamble Other [employer] Other Start: 10-27-2021 Office outpatient visit 15 minutes Ivan [facility] Start: 09-19-2021 End: 09-19-2021 ambulatory Ivan Gamble Other [employer] Other Start: 09-19-2021 Telephone encounter Ivan Sanders [facility] Start: 08-27-2021 End: 08-27-2021 ambulatory Ivan Gamble Other [employer] Other Start: 08-27-2021 Telephone encounter Ivan Sanders [facility] Start: 08-11-2021 End: 08-11-2021 ambulatory Ivan Gamble Other [employer] Other Start: 08-11-2021 Telephone encounter Ivan [facility] Start: 08-07-2021 End: 08-07-2021 ambulatory Arcadio Augustine Other [place] [employer] Other Start: 08-07-2021 Office outpatient visit 15 minutes Arcadio Augustine [facility] Start: 07-30-2021 End: 07-30-2021 ambulatory Filipe Ríos Other [place] [employer] Other Start: 07-30-2021 Telephone encounter Filipe Ríos [facility] Start: 07-28-2021 End: 07-28-2021 ambulatory Ivan Gamble Other [place] [employer] Other Start: 07-28-2021 Office outpatient ne w 30 minutes Ivandexter JaramilloTye [facility] Start: 06-30-2021 End: 07-01-[address] RAY KC Facility:[facility]1 Procedures Date Procedure Procedure Detail Performing Clinician Start: 04-09-2023 Plain chest X-ray MD Judson Velasquez Work Phone: Amputation of finger , except thumb Cira Carlene Other Plan of Treatment Date Care Activity Detail Author Hepatitis C virus Ig G Ab [Presence] in Serum or Plasma by Immunoassay [facility] Hepatitis C virus RN A [log units/volume] (viral load) in Serum or Plasma by SADI with probe detection [facility] Immunizations Immunization Date Immunization Notes Care Provider Keira bonilla 04-06-2020 tetanus toxoid, reduced diphtheria toxoid, and acellular pertussis vaccine, adsorbed Ivan Gamble Other [facility] NEGATED: Highlighted row has not occurred!04-30-2023 influenza, seasonal, injectable Cira Concepcion Other [employer] Other Payers Date Payer Category Payer Self-pay [id number] 2022 Private Health Insurance [id number] 1992 Unknown [id number] 1992 Unknown [id number] 1992 Unknown [id number] 1959 Unknown [id number] Unknown [place] BC/BS [id number] Unknown [facility] Inmates [id number] Unknown [id number] Unknown [id number] Social History Date Type Detail Facility Start: 12-14-2021 Tobacco smoking status NHIS Smoker (finding) 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 He has not been treated. The patient will need further lab studies with Hep C PCR. If this is positive, we will proceed with treatment. The patient will be contacted with these results. THIS PATIENT IS A GOOD CANDIDATE FOR THERAPY WITH HE / SHE IS MOTIVATED AND AGREES TO PROCEED WITH THERAPY THE PATIENT READINESS CONSENT WAS DISCUSSED AND SIGNED BY PATIENT AND PHYSICIAN HE / SHE DOES NOT HAVE ANY LIMITED LIFE EXPECTACNCY DUE TO NON LIVER COMORBITIES AND AGREES TO RNA TESTING Q 4 WEEKS WHILE ON THERAPY THIS PATIENT IS A GOOD CANDIDATE FOR THERAPY WITH HE / SHE IS MOTIVATED AND AGREES TO PROCEED WITH THERAPY THE PATIENT READINESS CONSENT WAS DISCUSSED AND SIGNED BY PATIENT AND PHYSICIAN HE / SHE DOES NOT HAVE ANY LIMITED LIFE EXPECTACNCY DUE TO NON LIVER COMORBITIES AND AGREES TO RNA TESTING Q 4 WEEKS WHILE ON THERAPY [employer] Other Evaluation note 10-27-2021 Note Date & Type Note Facility 10-27-2021 Evaluation note Encounter Date Diagnosis Assessment Notes Oct, Spinal stenosis of lumbar region without neurogenic claudication (ICD-10 - M48.061) Patient with findings of spinal stenosis at L3-L4 and L4-L5 as well as some foraminal narrowing bilaterally. Patient's primary concern is the back pain but does report some occasional radicular symptoms. He states his back pain has improved dramatically over the past couple months. I do go over other treatment options including Cymbalta, chronic anti-inflammato ry. He is currently only taking methadone for treatment of his addiction. Patient states that overall the pain seems to be pretty well controlled and does not wish to proceed with any other medicines. Patient was going to establish with pain management but his pain started to feel better so he decided not to. Oct, Heroin abuse (ICD-10 - F11.10) Patient established with [facility] counseling and recovery. He is currently on methadone. He has been clean since the beginning of August. He states overall he is doing well but it is a struggle. Patient has been off work throughout this time due to his heroin use and back pain. I do write a letter explaining that he has been off work due to medical condition. At this point I do recommend that he begin working. We discussed potential jobs that would work well for him. Also explained to him that getting in the house and working may be helpful for his addiction as well. Patient agrees. Oct, Smoking (ICD-10 - F17.200) Patient has been cutting back on smoking but continues to vape. Overall this is not a big concern at the moment given he is recently recovering from heroin abuse. Encouraged him to continue making small steps toward smoking cessation. [employer] Other Evaluation note 08-07-2021 Note Date & Type Note Facility 08-07-2021 Evaluation note Encounter Date Diagnosis Assessment Notes Jul, Drug addiction (ICD-10 - F19.20) Jul, Acute bilateral low back pain without sciatica (ICD-10 - M54.50) This is a very complicated patient. He seems to go to the emergency room every 1 to 2 weeks. He is a known heroin abuser. He has out of proportion palpable back pain diffusely in his lumbar spine. I saw the patient in the hospital and reviewed the MRI of the lumbar spine. This was reviewed independently I also evaluated the report and agree with the report. At that time the patient was complaining of severe back pain and scrotum pain. I at that time told him there were no surgical options apparently during one of his many visits to the emergency room he was instructed to see me again I am again telling the patient that I cannot help him surgically. He needs to seek out pain management or another form of care for back pain. I gave him a referral to [facility] the [facility] pain management refuses to see the patient. [employer] Other Evaluation note 07-28-2021 Note Date & Type Note Facility 07-28-2021 Evaluation note Encounter Date Diagnosis Assessment Notes Jul, Acute right-sided low back pain without sciatica (ICD-10 - M54.50) Patient with 1 to 2-month history of right low back pain radiating to his scrotum. Patient states he was a roll of carpet when he felt a sharp pain. He initially presented to [facility] emergency department. There was some suspicion for orchitis so he was treated with antibiotic. He presented shortly thereafter to [facility] emergency department where he was admitted for further work-up to rule out infectious etiology given his history of IV drug use. Patient did get an MRI in the hospital which showed a area of inflammation bilaterally around L3. He was seen in consultation by neurosurgery who did not feel this was clinically significant. Patient has been back to the ER since. He is currently utilizing conservative treatment. I do discuss options for neuropathic or fibromyalgia but the patient is not interested these medications. States he is currently using heroin for pain control. He does not ask me for any narcotics. He does ask for referral to pain management. I do explained to him that they may offer a variety of treatments but likely would not be willing to give him narcotics. He agrees, explained that he is not looking for narcotics but would be willing to explore other options. Jul, Heroin abuse (ICD-10 - F11.10) Patient states that he was a longtime heroin user but has been on methadone and tapered off have been clean for quite some time. He states when he hurt his back he began using heroin again for pain control. I do strongly encourage him to stop using. In the long run it is not helping his back pain likely causing an increase in pain response. I do discussion of options including going back to methadone, Suboxone or even naltrexone. I strongly encouraged him to go back to [facility] counseling and recovery. He states he will consider this but right now wants to get his pain under control. 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 Medical History anxiety Medical History depression Medical History bipolar Surgical History amputation of the le ft middle finger tip Surgical History lower groin hernia repair 8 y/o Hospitalization History see above Hospitalization History depression 03/2015 Hospitalization History [facility]--lower back pain [employer] Other History general Narrative - Reported Note Date & Type Note Facility History general Narrative - Reported [employer] Other History general Narrative - Reported Note Date & Type Note Facility History general Narrative - Reported Type Medical History hernia 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 Medical History anxiety Medical History depression Medical History bipolar Medical History hx of drug abuse Surgical History amputation of the le ft middle finger tip Surgical History lower groin hernia repair 8 y/o Hospitalization History see above Hospitalization History depression 03/2015 Hospitalization History [facility]--lower back pain [employer] Other Summary Purpose Family History No Family History Records FoundNo Family History Records FoundNo Family History Records FoundNo Family History Records FoundNo Family History Records Found Advance Directives No Advanced Directives Records Found Advance Directive Response Recorded Date/ Time Advance Directives No June 5:22pm Chief Complaint and Reason for Visit Chief Complaint I45.81 Chief Complaint r76.12 R94.31 R76.11 R76.8 Chief Complaint r76.12 R94.31 R76.11 R76.8 B19.20 Reason for Referral Reason *FU 08/20 Evaluate and Treat Diagnosis 1 Acute bilateral low back pain without sciatica (M54.50) Referral Organization [facility]ros[facility]gery Referring Provider First Name Arcadio Referring Provider Last Name Davide Referring Provider Specialty Neurologica l Surgery Referred Organization [facility] Referred Provider Watson Dumont Referred Address [address], [place],[address] Referred Provider Specialty Pain Medicin e Referral Priority Routine General Notes Whitley Morataya 021 10:13:56 AM >Received today and waiting for office notes to be locked before sendingWhitley Morataya 08/12/2021 01:41:53 PM >Dr. Dumont's office request us to fill out form and fax referral to them and they will review the referral and call patient. Referral was fax Reason * Waiting for appt lumbar back pain Diagnosis 1 Acute right-sided lo w back pain without sciatica (M54.50) Referral Organization [facility] Referring Provider First Name Ivan Referring Provider Last Name Tye Referring Provider Specialty Family Dinamundo Referred Organization [facility] Pain Managemen t Referred Provider Ludmila Ríos Sherif Referred Address [address] [address] ,[place], [place],[address] Referred Provider Specialty Pain Medicin e Referral Priority Routine General Notes Genesis Little 01/2021 12:54:51 PM >referral received and sent p2p Reason * FU 08/06 left pr eauricular cyst with drainage off and on, desires excision Diagnosis 1 Preauricular cyst (Q 18.1) Referral Organization [facility] Referring Provider First Name Cira Referring Provider Last Name Carlene Referring Provider Specialty Family Dinamundo Referred Organization [facility] Referred Provider Jose Jha Referred Address ,[place], [place],[address] Referred Provider Specialty Otolaryngolo gy Referral Priority Routine General Notes Anabel Genesis L 03/2023 09:20:12 AM > referral received and faxed Additional Source Comments (unrecognized sect ion and content) No Status Records FoundNo Status Records FoundNo Status Records FoundNo Status Records FoundNo Status Records Found INFORMATION SOURCE (unrecogn ized section and content) DATE CREATED AUTHOR 04/22/2019 [facility] DATE CREATED AUTHOR AUTHOR'S ORGANIZ ATION 07/03/2021 [facility] DATE CREATED AUTHOR AUTHOR'S ORGANIZ ATION 11/09/2021 [facility] DATE CREATED AUTHOR AUTHOR'S ORGANIZ ATION 02/26/2024 [facility] DATE CREATED AUTHOR AUTHOR'S ORGANIZ ATION 05/10/2024 [facility] Care Teams (unrecognized sec tion and content) Team Status: Inactive Member Role Status Dates Ivan Gamble , DO Primary Care Provider Active Tammy Walker MD Attending Provider Active Team Status: Active Member Role Status Dates Ivan T Tye , DO Primary Care Provider Active Team Status: Active Member Role Status Dates Cira Alexandria Concepcion , DO Primary Care Provider Active Team Status: Inactive Member Role Status Dates Cira Concepcion , DO Primary Care Provider, Attending Kamila murrieta Active Team Status: Inactive Member Role Status Dates Quintni Redd , DO Attending Provider Active Alhaji Velasquez MD Other Provider Active Team Status: Inactive Member Role Status Dates Cira Concepcion , DO Primary Care Provider Active Cosme Alan MD Attending Provider Active Goals (unrecognized section and content) Goals may be documented in a n alternate sectionNo InformationNo InformationNo InformationNo InformationNo InformationNo InformationGoals may be documented in an alternate sectionNo InformationNo InformationGoals may be documented in an alternate sectionNo InformationNo InformationNo Information REASON FOR VISIT (unrecogniz ed section and content) ER Visit increased back pain [facility] /. HAS BEEN TO ER 4 TIMES FOR SEVER LOWER BACK PAINpain management referralletter request3 month follow uplab resultsReferral to Dr. WellingtonREF BY DR. CONCEPCION FOR HEP C. PATIENT SAW DR NOLEN IN 2017 BUT NEVER FOLLOWED THROUGH WITH TESTING OR TREATMENT.Gastro office note3 month Follow up FOR RECORDS PERTAINING TO PATIENTS WHO ARE OR HAVE BEEN ENROLLED IN A CHEMICAL DEPENDENCY/SUBSTANCEABUSE PROGRAM, SOME INFORMATION MAY BE OMITTED. This clinical summary was aggregated from multiple sources. Caution should be exercised in using it in the provision of clinical care. This summary normalizes information from multiple sources, and as a consequence, information in this document may materially change the coding, format and clinical context of patient data. In addition, data may be omitted in some cases. CLINICAL DECISIONS SHOULD BE BASED ON THE PRIMARY CLINICAL RECORDS. [employer] provides no warranty or guarantee of the accuracy or completeness of information in this document.
--- NOTE | 2024-11-12 21:28 | ED.EYEPROB1 ---
HPI - Eye Problem General Chief complaint: Eye Problems Stated complaint: metal in eye Time Seen by Provider: 11/12/24 21:26 Source: patient Mode of arrival: walk-in History of Present Illness HPI Narrative: working on his car and got FB left eye. Has been there for about 9 hours. vision is normal . No headache or other complaint Related Data Allergies Allergy/AdvReac Type Severity Reaction Status Date / Time No Known Drug Allergies Allergy Verified 08/20/24 10:53 Review of Systems ROS Status of ROS 10 or more systems reviewed and unremarkable except as noted in history and below PFSH PFSH Social History Little interest or pleasure in doing things: not at all Feeling down, depressed, or hopeless: not at all Exam Constitutional Vital Signs, click to edit/add: Last Vital Signs Temp 98.5 F 11/12/24 21:10 Pulse 70 11/12/24 21:10 Resp 16 11/12/24 21:10 BP 122/71 11/12/24 21:10 Pulse Ox 98 11/12/24 21:10 O2 Del Method Room Air 11/12/24 21:10 Common normals: no apparent distress, average body habitus, oriented x3, no limitations, healthy appearing, alert and well nourished [facility] Common normals: normocephalic and head/scalp atraumatic Eye Common normals: PERRL and EOMs intact bilaterally Other: mildly injected left conjunctiva Eye images:  1. FB left eye Respiratory Common normals: normal respiratory effort, no retractions and no use of accessory muscles Cardio Common normals: regular rate and regular rhythm Extremity Common normals: normal to inspection and full ROM Neuro Common normals: oriented x3, CN's II-XII intact bilaterally, moves all extremities and no focal motor deficits Psych Appearance: grossly normal Course Vital Signs Vital signs: Vital Signs Temperature 98.5 F 11/12/24 21:10 Pulse Rate 70 11/12/24 21:10 Respiratory Rate 16 11/12/24 21:10 Blood Pressure 122/71 11/12/24 21:10 Pulse Oximetry 98 11/12/24 21:10 Oxygen Delivery Method Room Air 11/12/24 21:10 Temperature 98.5 F 11/12/24 21:10 Pulse Rate 70 11/12/24 21:10 Respiratory Rate 16 11/12/24 21:10 Blood Pressure 122/71 11/12/24 21:10 Pulse Oximetry 98 11/12/24 21:10 Oxygen Delivery Method Room Air 11/12/24 21:10 MDM - Eye Problem MDM Narrative Medical decision making narrative: patient presents with FB left eye. was working on his car. FB present about 9 hours. removed as above. Patient discharged home with tobramycin eye drops and advised to have the eye rechecked tomorrow Discharge Plan Discharge Chief Complaint: Eye Problems Clinical Impression: Foreign body in conjunctival sac, left eye, initial encounter Print Language: Tristanian Referrals: Cira Concepcion DO [Primary Care Provider] - 1 week Procedures ED Procedure Instructions Procedures Procedures: FB left eye. superficial cornea FB. tetracaine used as local. FB removed with algerbrush II. small rust residual remained. Tolerated well. No complications
[2024-11-12 22:13] VITALS: BP 121/82; PULSE 75; O2SAT 99
[2024-11-12] MEDS: HYDROCODONE/ACET 5-325 MG TABLET 4 TAB PO (22:31)
[2024-11-12] MEDS: TOBRAMYCIN 0.3% OP SOL 100 DROP/5 ML BOTTLE OP (22:32)
[2024-11-12] MEDS: TETRACAINE HCL 0.5% OP SOL 80 DROP/4 ML BOTTLE OP (22:34)
== END 2024-11-12 22:13 | disposition home or self-care (01) ==
PROVIDERS: Emergency Provider Internal Medicine; PCP Family Medicine
DX: T15.12XA Foreign body in conjunctival sac, left eye, initial encounter (principal); W44.8XXA Other foreign body entering into or through a natural orifice, initial encounter
CPT/HCPCS: 65205; 99283